=== PATIENT | female | born 1955 | race Caucasian/White ===

== ENCOUNTER 2018-05-25 06:20 | Observation (INO) | payer MEDICARE ==
[2018-05-22 13:44] LABS: Urine Appearance CLEAR; Urine Bilirubin NEGATIVE (NEG); Urine Blood NEGATIVE (NEG); Urine Color YELLOW; Urine Glucose NEGATIVE (NEG); Urine Protein NEGATIVE (NEG); Urine Specific Gravity 1.015 (1.005-1.030); Urine Urobilinogen 0.2 mg/dL (0.2-1.0); Urine pH 5.5 (5.0-7.0)
[2018-05-22 13:49] LABS: Absolute Lymphocytes (CBC) 2.1 K/uL (0.7-4.9); Absolute Neutrophil 4.8 K/uL (1.8-8.0); Basophils % 1.1 % (0-1.3); Eosinophils % 4.3 % (0-4.4); Hematocrit 34.3 % (36.0-45.0); Lymphocytes % 24.9 % (15.3-44.8); MCH 29.9 pg (27.0-35.0); MPV 9.8 fL (7.6-11.3); Monocytes % 12.3 % (3.3-12.3); RBC Red Blood Cell Count 3.89 M/uL (3.86-4.86)
[2018-05-22 14:11] LABS: Urine Microscopic Reflex ORDER UMIC
[2018-05-22 14:12] LABS: Urine Bacteria >50 /HPF (<20); Urine RBC <5 /HPF (NONE SEEN)
[2018-05-22 14:13] LABS: Urine Culture Reflex Order REFLEXED
[2018-05-25] MEDS ORDERED: SCOPOLAMINE HYDROBROMIDE PATCH TD ONE (06:41)
[2018-05-25] MEDS ORDERED: NA CHLORIDE 0.9% 1,000 ML ONE ×3 (06:41→10:36)
[2018-05-25 06:47] LABS: Specific Gravity 1.015 (1.005-1.030)
[2018-05-25] MEDS ORDERED: PROPOFOL 200 MG/20 ML VIAL IV ONE (06:58)
[2018-05-25] MEDS ORDERED: ROCURONIUM 50 MG/5 ML VIAL IV ONE ×2 (06:59→08:46)
[2018-05-25] MEDS ORDERED: GLYCOPYRROLATE 0.2 MG/ML SYR ONE ×2 (06:59→07:00)
[2018-05-25] MEDS ORDERED: DEXAMETHASONE 10 MG/ML VIAL ONE (07:00)
[2018-05-25] MEDS ORDERED: LIDOCAINE 2% MPF 5 ML VIAL ONE (07:00)
[2018-05-25] MEDS ORDERED: FENTANYL CITR 250 MCG/5 ML ONE (07:01)
[2018-05-25] MEDS ORDERED: MIDAZOLAM HCL 2 MG/2 ML INJ ONE ×2 (07:01→10:39)
[2018-05-25] MEDS ORDERED: NEOSTIGMINE 1 MG/ML -5 ML SYRINGE ONE (07:01)
[2018-05-25] MEDS ORDERED: ONDANSETRON HCL 40 MG/20 ML VIAL ONE ×2 (07:01→10:39)
[2018-05-25] MEDS: CEFAZOLIN/SWI 2gm 2 GM/20 ML SYR IV SCH ×2 (08:01→08:36)
[2018-05-25] MEDS: NA CHLORIDE 0.9% 1,000 ML ONE ×2 (08:10→08:36)
[2018-05-25] MEDS ORDERED: EPHEDRINE SULF 50 MG/10 ML SYR ONE (08:26)
[2018-05-25] MEDS ORDERED: CEFAZOLIN SODIUM 1 GM/VIAL ONE (10:43)
[2018-05-25] MEDS: HYDRALAZINE HCL 20 MG/ML VIAL ONE ×3 (11:06→11:20)
[2018-05-25] MEDS ORDERED: INSULIN -REGULAR HUMAN 50 UNIT/0.5 ML ML ONE ×2 (13:06→15:13)
[2018-05-25] MEDS ORDERED: FUROSEMIDE 20 MG/ 2ML VIAL ONE (13:13)
--- NOTE | 2018-05-25 14:02 | RAD REPORT ---
EXAM DESCRIPTION: RAD - Chest Single View - 05/25/2018 1:21 pm CLINICAL HISTORY: Shortness of breath, pulmonary edema COMPARISON: August 2015 TECHNIQUE: AP portable chest image was obtained 1306 hours . FINDINGS: No focal consolidation identifiable. Lung volumes are low. Heart size and pulmonary vascul ature within normal limits. Mild alveolar opacities are present in the medial left lung base and in t he upper central and lower central right lung field. Trachea is midline. No measurable pleural effusi on and no pneumothorax. No acute bony abnormality seen. No acute aortic findings suspected. IMPRESSION: Central alveolar edema or infiltrate pattern in the right lung field and in the medial l eft lung base. No cardiomegaly or vascular engorgement.
[2018-05-25] MEDS: MEPERIDINE HCL 25 MG/0.5 ML ONE ×2 (14:41→14:49)
[2018-05-25] MEDS ORDERED: MEPERIDINE HCL 50 MG/ML AMP ONE (15:25)
[2018-05-25] MEDS ORDERED: HYDROCODONE/APAP 7.5/325 MG TAB PO PRN (15:35)
[2018-05-25] MEDS ORDERED: PROMETHAZINE 25 MG/ML VIAL IV PRN (15:36)
[2018-05-25] MEDS ORDERED: Ringers Lactate 1,000 ML IV SCH (16:00)
[2018-05-25] MEDS: INSULIN -REGULAR HUMAN 50 UNIT/0.5 ML ML SQ SCH ×7 (17:00→23:18)
[2018-05-25] MEDS ORDERED: GLUCAGON 1 MG/VIAL IM PRN (17:32)
[2018-05-25] MEDS ORDERED: D50W 25 GM/50 ML SYRINGE IV PRN (17:32)
[2018-05-25] MEDS ORDERED: FUROSEMIDE 40 MG/4 ML VIAL IV ONE (18:15)
[2018-05-25 18:57] LABS: Magnesium 1.7 mg/dL (1.8-2.4); Potassium 4.6 mmol/L (3.5-5.1)
--- NOTE | 2018-05-25 19:55 | OP ---
Date of Procedure: 05/25/2018 Surgeon: Iwona Quevedo MD Principal Product Manager: Della Kinsey. Preoperative Diagnosis: Recurrent postmenopausal bleeding. Postoperative Diagnosis: Recurrent postmenopausal bleeding. Procedures Performed: Total laparoscopic hysterectomy, bilateral salpingo-oophorectomy, pelvic washi ngs, and lysis of sigmoid and omental adhesions, which took more than 50% of the case, cystoscopy. Anesthesia: General endotracheal. The patient had to be intubated with a GlideScope. Estimated Blood Loss: Minimal. Specimens: Uterus, tubes, and ovaries, and pelvic washings. Complications: None. Drains: None. Condition: The patient is stable. Findings: There were dense omental adhesions from the section in the lower abdominal cavity from the center all the way to the left and then the left lower quadrant at the pelvic brim, and adh esions from the omentum to the bowel as well. There were tubal adhesions to the bowel as well. The removal of bowel and getting the case started took 50% of the time of the procedure. Uterus, tubes, and ovaries appeared to be unremarkable and the vaginal cuff was closed with the help of 2-0 V-Loc an d the peritoneum was closed on top of this with the help of 3-0 Vicryl in a continuous running fashio n. Indications For Procedure: The patient is a 62-year-old with postmenopausal bleeding who presented l ast year. She was evaluated. Her endometrial stripe was a 8.5 mm, so endometrial hysteroscopy was p erformed with endometrial curettings, which showed inactive endometrium; however, the endometrium sona eared to be inadequate for sampling. The patient over the next 6 months continued to be observed. S he continued to have recurrent episodes of postmenopausal bleeding over that period of time, so we di scussed options of re-sampling, observation with followup, and hysterectomy. She was explained that there could be a small chance of an endometrial cancer or other pathology that is not obvious or amen able to diagnosis and that would be the reason to proceed with a hysterectomy. Given the recurrent e pisodes of bleeding, she was concerned and wanted to proceed with hysterectomy after having thought a bout this for few months, and medical clearance was obtained from her glass cleaning machine tender and her primary ca re physician. Then we proceeded with the procedure. Procedure In Detail: After she was brought here, she was re-consented, taken back to the OR. Two gr ams of Ancef were given. Placed in a dorsal lithotomy position using the Rick stirrups. The IVs we re difficult to get. However, 1 on each arm were obtained. SCDs were left on the legs and there wer e started before the start of the case. After patient was tucked with the arms on the side boards, s he did well without any problems. Uterus was about 6 week size, small. No adnexal mass palpable. Uterus appeared to be mobile. Abdomen, vulva, vagina, and peritoneum were prepped and draped in a sterile fashion. Knowles was place d to drain the bladder and attached to cysto tubing for retrograde filling. A medium VCare manipulat or was introduced into the uterus in the usual fashion and this area was draped. A 1 cm infraumbilic al incision was made with a scalpel using the open laparoscopy technique. Fascia was incised, tagged , and the Terrell introduced. Site of entry was checked. There were no adhesions right at this point , however, superiorly and laterally, the upper abdominal cavity on the right side and the lower abdom en in the midline and to the left side, there were dense omental adhesions, could not see anything to even place another port, so a right lower quadrant port was placed 5 mm without any problems under d irect vision. Then I went on to take down the adhesions systematically by making windows and with pu sh-spread technique and then taking down with the help of the LigaSure. After all the omental adhesi ons were systematically taken down, there were some bladder adhesions which were also taken down. Th ere was an omental adhesion to the left sigmoid colon and this was taken down. There were adhesions of the sigmoid colon to the left pelvic brim besides the natural attachment. These were also taken d own because the colon was masking the left adnexa and it was difficult to even evaluate the pelvic ca vity. So, once all these adhesions were taken down, there were adhesions of the left ovary to the si gmoid. This was also taken down. Then once all adhesions were cleared up, we then proceeded with th e hysterectomy. The 5 mm left lower quadrant and 10 mm suprapubic ports were placed under direct vis ion. After thorough evaluation, I could not see the ureters. However, the cap was obvious. No darya omical distortion was noted anteriorly. There was a scar in the bladder aspect on the anterior vagin al wall on the left side. Once this was all visualized, a 5 mm LigaSure was used to take down the ut ero-ovarian ligament, mesosalpinx, round ligament, the both leaves of the broad ligament a nd raising the bladder flap anteriorly all the way to the opposite side. Once I got to the space at the VCare cup, this was dissected with the help of a monopolar to open the vesicovaginal space and th en the bladder was retracted inferiorly. More adhesions on the left side than on the right, and thes e were taken down carefully with push-spread technique, making windows, and taken down with the help of the LigaSure. Once this was done, the bladder was pushed inferiorly. Then, the vessels were skel etonized. Posterior peritoneum taken down to the left uterosacral. On the opposite side, similar di ssection was performed on the utero-ovarian round, mesosalpinx tube, broad ligament anterior and post erior leaves. Anterior was connected to the bladder flap and dissection was performed to skeletonize the vessels. Posteriorly, once the peritoneum was taken down and the broad ligament was taken down, the vessels were completely skeletonized. Then anteriorly the bladder flap was pushed down in the v esicovaginal avascular space adequately in a circumferential fashion, so the VCare cup was well visua lized and the windows were made in the medial aspects of both vessels first on the right side than on the left. Bipolar basket tip was used to cauterize and LigaSure was used to cauterize and cut. The cardinal ligaments were also taken down on both sides then circumferential colpotomy with a monopola r hook blade in a circumferential fashion taking all the specimen detaching it from the vagina. The specimen was pulled out through the vagina. There was excellent hemostasis. The tubes and ovaries w ere then removed with the help of the LigaSure starting on the left side, taking down the tube then t he ovary separately, and the tube was removed through the suprapubic trocar. Same thing with the opp osite side, on the right side the tube was removed through the suprapubic trocar. There were tubal a dhesions to the omentum as well as the lateral wall, so these were all taken down, taking the segment s of the tube out. There was a solid mass that appeared to be like calcium formation in the cut dist al part of the fallopian tube. Once this specimen was removed as well, then the tube and ovary were removed on this side. There was excellent hemostasis. Thorough irrigation and suction were performe d. The vaginal cuff was closed with the help of 2-0 V-Loc starting on the right side coming to the l eft, and ending the suture by going back 1 stitch, so that it does not slide out. A 3-0 Vicryl was used to close the peritoneum on top of this, so the V-Loc is not exposed. Thorough irrigation and suction were performed. Pictures were taken. The bowel epiploicae that were tacked w ith the help of 2-0 PDS using the Javier-Andreina in the left upper quadrant were released, and this was not bleeding and was completely hemostatic. Then, the trocars were removed under direct vision. The gas was desufflated. Fascia at the umbilicus closed with 0 Vicryl in a egvxns-[id number]-vdvtv fashion. All the skin incisions closed with the help of 4-0 Monocryl interrupted. Cystoscopy was performed with a 17-Hebrew sheath, 30-degree lens and normal saline. After removing the Knowles, there was excel lent flow of urine from both ureteric orifices. No evidence of any thinner stream or delay. There w as squamous metaplasia in the trigonal area as well as near the left ureter, but this did not appear to be abnormal. There were patches of squamous metaplasia as well anterior sides, and the trigone co samra towards the right ureter. The bladder was drained. The vagina was cleaned up. Instrument, needle, and sponge counts were done and were correct at the end of the case. The patient tolerated the procedure well. She will follow up with me in 1 week. She has been given instructions to continue her antibiotics, and she was give n a dose of Ancef at 3 hours in the OR. Her saturations had dropped for a little bit when she was in itially placed in Trendelenburg, however they were very stable throughout the entire case. Her blood pressure was stable and all her vital signs, so she was taken to Recovery, still intubated, and once she is extubated, we will figure out the plan on whether to observe her or discharge her home, most likely discharge her home if she is stable. Instrument, needle, and sponge counts were correct. KUMAR/JEREMÍAS Voice ID: [id number] Report ID: [id number]
[2018-05-25 20:19] VITALS: BMI 39.9
[2018-05-25] MEDS ORDERED: MAGNESIUM SULFATE 1 gm IVPB 1 GM/100 ML BAG IV ONE (21:00)
[2018-05-25] MEDS: MEPERIDINE HCL 50 MG/ML AMP IV PRN (21:39)
[2018-05-25] MEDS ORDERED: NA CHLORIDE 0.9% 250 ML ONE (21:40)
[2018-05-26] MEDS: MEPERIDINE HCL 50 MG/ML AMP IV PRN (04:33)
[2018-05-26 05:20] LABS: Magnesium 2.2 mg/dL (1.8-2.4); Potassium 3.6 mmol/L (3.5-5.1)
[2018-05-26] MEDS ORDERED: KCL 20 MEQ/100 mL IVPB 20 MEQ/100 ML BAG IV SCH (06:00)
[2018-05-26] MEDS ORDERED: NA CHLORIDE 0.9% 250 ML ONE (06:02)
--- NOTE | 2018-05-26 07:53 | CON ---
Date of Consultation: 05/25/2018 Chief Complaint: Shortness of breath. History Of Present Illness: A 62-year-old female patient who had elective surgery done today by Dr. Quevedo in the form of hysterectomy. The patient did obtain Cardiology clearance from her long wall shear operator who is out of town, and she informs me that she had echocardiogram and a stress test done by her long wall shear operator, and then long wall shear operator gave her cardiac clearance. The patient had surgery done today. After surgery during recovery process, she actually had problem with her pulmonary edema, and she was not able to be extubated immediately, but subsequently they were able to extubate her, and she was on BiPAP. Chest x-ray had revealed evidence of pulmonary edema, and 40 mg Lasix IV was given x1 dose, and I was contacted by Dr. Quevedo. By that time, the patient's condition was improving, and after I discussed with her, I did request second dose of Lasix 40 mg IV to be given, and a stat blood work was ordered. I did see the patient this evening, and she was in her room on nasal cannula oxygen at least for the last 3 to 4 hours or so and was not in any respiratory distress. The patient reported feeling better compared to earlier. Allergies: SHE IS ALLERGIC TO LEVOFLOXACIN CAUSING TINGLING, NUMBNESS, DIZZINESS; TRIAMTERENE CAUSING RASH; AND HEPARIN CAUSING SWELLING AND SWEATING. Medications: According to outpatient office chart, she is on famotidine 40 mg at bedtime, gemfibrozil 600 mg daily, glimepiride 1 mg 2 times a day, levothyroxine 125 mcg p.o. daily, lisinopril 20/HCTZ 12.5 one tablet 2 times a day, lovastatin 40 mg p.o. daily, magnesium 250 mg 3 times a day, metformin 500 mg 2 times a day, metoprolol 100 mg 2 times a day, vitamin B12 1000 mcg daily, vitamin D3 1000 units p.o. daily. Review of Systems: Respiratory: As mentioned above. Cardiovascular: As mentioned above. All other systems reviewed and negative. Past Medical History: Significant for hypertension, mixed hyperlipidemia, type 2 diabetes mellitus, hypomagnesemia, gastroesophageal reflux disease, hypothyroidism, diabetic neuropathy, and chronic diastolic congestive heart failure. Past Surgical History: Significant for cholecystectomy, , removal of benign breast tumor and surgery for ankle fracture. Family History: Significant for COPD, hypertension, diabetes, stroke and myocardial infarction. Social History: Prior history of smoking but not at present time, quit long time ago. Negative for alcohol use. Physical Examination: Vital Signs: Last temperature 96.8, pulse 80, respiratory rate 18, blood pressure 119/54, oxygen saturation 93%. Height 5 feet 7 inches, weight 255 pounds. General: Awake, alert, oriented, not in distress. HEENT: Head atraumatic, normocephalic. Conjunctivae nonerythematous. Sclerae white. Mouth, no thrush or edema noted. Ears/Nose, no mass, lesion, discharge noted. Neck: Supple. No JVD, lymph nodes, bruit, thyromegaly noted. Lungs: Bilateral scattered rales noted in lower half of both lung sweeney. The patient not using accessory muscles of respiration. Heart: Normal heart sounds, no murmur or gallop. Abdomen: Soft, bowel sounds normal. No guarding, rigidity, tenderness, mass, hepatosplenomegaly, distention, or bruit noted. Extremities: No leg edema. No calf tenderness. Skin: No rash, ulcer, cellulitis. Lymphatics: No lymph node enlargement in neck, supraclavicular, infraclavicular region. Neuro: No focal neurological deficit. Chest: Unremarkable. External Genitalia: Deferred. Rectal: Deferred. Diagnostic Studies: Her echocardiogram from 12/21/2017 done by her long wall shear operator had shown mild concentric left ventricular hypertrophy, ejection fraction 67%, mild mitral regurgitation, and trace tricuspid regurgitation. Labs from 05/22/2018 showed white count 8.3, hemoglobin 11.6, platelets 327. This afternoon, her sodium 139, potassium 4.6, chloride 107, bicarb 22, BUN 31, creatinine 1.30, glucose 282, magnesium 1.7. Chest x-ray shows evidence of pulmonary edema. Impression: 1. Acute pulmonary edema. 2. Congestive heart failure, chronic, diastolic, with acute exacerbation. 3. Hypertension. 4. Type 2 diabetes mellitus. 5. Mixed hyperlipidemia. 6. Hypothyroidism. 7. Diabetic neuropathy. 8. Hypomagnesemia. Plan: We will go ahead and continue to monitor intake/output on this patient. She is currently on IV fluid. I have taken the liberty to discontinue this IV fluid, and so far she has received Lasix 40 mg IV x2 doses, and we will not give any more Lasix tonight. Monitor intake, output, vital signs. Repeat blood work tomorrow morning. Replace electrolyte per protocol, and I will see her tomorrow morning for followup. The patient still has evidence of pulmonary edema on physical exam as well. She is medically stable at this point, not in any respiratory distress, and we will continue to diurese her tomorrow with monitoring of electrolytes. I have requested a copy of her stress test results and echo to be obtained from her long wall shear operator for our review. Details and plan of treatment discussed with her and Dr. Quevedo. SCDs in place for DVT prophylaxis. The patient is appropriate for inpatient and is expected to spend 2 midnights in hospital. Thank you very much for allowing me to participate in her care, and I will see her tomorrow morning for followup. JENNY/JEREMÍAS Voice ID: [id number] Report ID: [id number] AVELINO
[2018-05-26] MEDS: INSULIN -REGULAR HUMAN 50 UNIT/0.5 ML ML SQ SCH ×4 (08:59→21:04)
[2018-05-26] MEDS: FUROSEMIDE 40 MG/4 ML VIAL IV SCH (09:02)
[2018-05-26] MEDS: METOPROLOL TAR 50 MG TAB PO SCH ×2 (12:18→21:03)
[2018-05-26] MEDS: HYDROCODONE/APAP 7.5/325 MG TAB PO PRN ×2 (12:19→21:05)
--- NOTE | 2018-05-26 18:05 | PN ---
Date of Progress Note: 05/26/2018 Subjective: The patient was seen this morning for followup. No new complaints or problems reported by patient, lying in bed, not in any distress. Denied any shortness of breath or chest pain this mor alexander. Objective: Vital Signs: Reviewed. HEENT: Examination unremarkable. Lungs: Clear to auscultation except very minimum basal rales, significantly better than yesterday. Heart: Sounds normal. Abdomen: Soft. Bowel sounds normal. No guarding, rigidity, tenderness, or distention. Extremities: No leg edema. Laboratory Data: Sodium 141, potassium 3.6, chloride 105, bicarb 26, BUN 31, creatinine 1.20, glucos e 148, magnesium 2.2. Impression: 1.Pulmonary edema, improved. 2.Congestive heart failure, diastolic, acute. 3.Hypertension. 4.Diabetes mellitus. Plan: The patient's condition is significantly better today than yesterday. Lasix 40 mg IV x1 dose was ordered this morning. This will be her third dose of IV Lasix and she is diuresing very well. C linically improving well. Possible discharge either later today or tomorrow depending on her conditi on. Upon discharge, the patient will continue her all previously prescribed home medications. From my point of view, any additional medication or instruction per her attending, Dr. Quevedo. JENNY/MODL Voice ID: [id number] Report ID: [id number]
[2018-05-27 07:01] LABS: Potassium 3.8 mmol/L (3.5-5.1)
[2018-05-27] MEDS: INSULIN -REGULAR HUMAN 50 UNIT/0.5 ML ML SQ SCH ×2 (08:21→11:46)
[2018-05-27] MEDS: METOPROLOL TAR 50 MG TAB PO SCH (08:22)
[2018-05-27] MEDS: FUROSEMIDE 40 MG/4 ML VIAL IV SCH (08:24)
[2018-05-27] MEDS ORDERED: POTASSIUM CL SA 10 MEQ TAB PO ONE (09:00)
[2018-05-27 09:42] VITALS: O2SAT 100
--- NOTE | 2018-05-27 14:57 | PN ---
Date of Progress Note: 05/27/2018 Subjective: The patient was seen this morning for followup, no new complaints or problems reported b y patient. She was sitting in the chair and feeling fine. No shortness of breath. No complaints re ported this morning. Her was present with her at bedside. She is ambulating well without an y difficulties and maintaining adequate oxygen saturation without using any oxygen. Objective: Vital Signs: Reviewed. HEENT: Unremarkable. Lungs: Clear to auscultation. No rhonchi. No rales. Heart: Sounds normal. Abdomen: Soft. Bowel sounds normal. No guarding, rigidity, tenderness, or distention. Extremities: No leg edema. Laboratory Data: This morning sodium 141, potassium 3.8, chloride 105, bicarb 27, BUN 27, creatinine 1, glucose 171. Impression: 1.Congestive heart failure, acute, diastolic. 2.Pulmonary edema, resolved. 3.Hypertension. 4.Diabetes mellitus. Plan: The patient is medically stable for discharge. She does not need any more diuretic therapy wi zenaida Beyer and I did call her attending physician, Dr. Quevedo, details were discussed. From her poin t of view, the patient is stable for discharge and medically she is stable for discharge. So after t alking to her, I have written discharge order for patient to go home. The patient to continue all he r home medication as I was prescribing it to her prior to this admission. Dr. Quevedo has provided her with prescription as well as appropriate postop instructions. The patient to follow up with Dr. Quevedo per her instructions. JENNY/MODL Voice ID: [id number] Report ID: [id number]
[2018-05-27 17:05] VITALS: BP 142/65; TEMP 97.5
== END 2018-05-27 13:30 | disposition home or self-care (01) ==
LOC: OR 06:20 → 2ND 15:20 → INTOOBSV 21:58 → OBSVTOIN 21:58
PROVIDERS: ADMIT Obstetrics & Gynecology; ATTEND Obstetrics & Gynecology
PROC: 0UT24ZZ Resection of Bilateral Ovaries, Percutaneous Endoscopic Approach (ICD-10-PCS; 2018-05-25)
PROC: 0UT74ZZ Resection of Bilateral Fallopian Tubes, Percutaneous Endoscopic Approach (ICD-10-PCS; 2018-05-25)
PROC: 0DNU4ZZ Release Omentum, Percutaneous Endoscopic Approach (ICD-10-PCS; 2018-05-25)
PROC: 0UT94ZZ Resection of Uterus, Percutaneous Endoscopic Approach (ICD-10-PCS; principal; 2018-05-25 07:30)
DX: N95.0 Postmenopausal bleeding (principal); K66.0 Peritoneal adhesions (postprocedural) (postinfection); I11.0 Hypertensive heart disease with heart failure; I50.33 Acute on chronic diastolic (congestive) heart failure; E78.2 Mixed hyperlipidemia; E03.9 Hypothyroidism, unspecified; E11.40 Type 2 diabetes mellitus with diabetic neuropathy, unspecified; E83.42 Hypomagnesemia
CPT/HCPCS: 36415 ×3; 49329; 58571; 71045; 80048 ×3; 81025; 82962 ×14; 83735 ×3; 85025; 86850; 86900; 86901; 87077; 87086; 87088; 87186; 88108; 88305; 88307; 94002; 94660 ×3; 94760; J0360; J0690 ×2; J1100; J1940; J2175 ×4; J2250; J2405 ×2; J2710; J3475; J7030 ×4; 81003; 81015; G0378; G0379

== ENCOUNTER 2022-02-12 10:09 | Emergency (ER) | payer OTHER ==
[2022-02-12] MEDS ORDERED: NA CHLORIDE 0.9% 1,000 ML ONE (11:12)
[2022-02-12 11:30] LABS: Hematocrit 40.5 % (36.0-45.0); Lymphocytes % 21.1 % (15.3-44.8); MCV 87.2 fL (80-100); MPV 8.8 fL (7.6-11.3); RBC Red Blood Cell Count 4.65 M/uL (3.86-4.86)
[2022-02-12 11:33] LABS: Urine Blood Negative (Negative); Urine Glucose 3+ (Negative); Urine Protein Negative (Negative); Urine Specific Gravity 1.015 (1.005-1.030); Urine pH 5.5 (5.0-7.0)
[2022-02-12] MEDS ORDERED: AZITHROMYCIN 250 MG TAB ONE (11:33)
[2022-02-12 11:48] LABS: Bilirubin Total 0.4 mg/dL (0.2-1.0); Potassium 3.8 mmol/L (3.5-5.1); Protein, Total 7.6 g/dL (6.4-8.2); Troponin High Sensitivity 8.7 pg/mL (<58.9)
--- NOTE | 2022-02-12 11:49 | RAD REPORT ---
EXAM DESCRIPTION: RAD - Chest Pa And Lat (2 Views) - 02/12/2022 11:38 am CLINICAL HISTORY: Cough COMPARISON: Portable chest 05/25/2018, lateral chest 03/02/20152009 TECHNIQUE: Frontal and lateral views of the chest were obtained. FINDINGS: The lungs are clear of focal mass, consolidation or failure findings. No hilar mass or lym phadenopathy. Mildly prominent interstitial pattern is believed be baseline. Trachea is midline. Heart size is normal and central vasculature is within normal limits. No pleur al effusion or pneumothorax seen. No acute bony finding noted. No aortic abnormality. IMPRESSION: No acute cardiopulmonary process.
--- NOTE | 2022-02-12 12:32 | EDPHYS ---
Physician Documentation [facility] Name: Kaylan Enamorado Age: 66 yrs Sex: Female : 1955 Arrival Date: 02/12/2022 Time: 10:16 Bed 14 Private MD: Melanie Russell C ED Physician Nitin Esparza HPI: 02/12 11:49 This 66 yrs old Female presents to ER via Ambulatory with complaints of Flu jorge a Symptoms. 11:49 fever, cough and congestion. jorge a 11:50 The patient or guardian reports cough, flu symptoms, arthralgias, low-grade fever, jorge a myalgias. Onset: The symptoms/episode began/occurred this morning, today. Severity of symptoms: At their worst the symptoms were mild, in the emergency department the symptoms are unchanged. Modifying factors: The symptoms are alleviated by nothing, the symptoms are aggravated by exertion. The patient reports fever, that was measured at 97 degrees Fahrenheit. Onset: The symptoms/episode began/occurred 1 day(s) ago. Modifying factors: The patient has had contact with sick spouse. Associated signs and symptoms: Pertinent positives: rhinorrhea, sore throat. Severity of symptoms: At their worst the symptoms were mild in the emergency department the symptoms are unchanged. Historical: - Allergies: 10:35 Heparin; iw 10:35 Maxzide; iw - PMHx: 10:33 CHF; Diabetes - NIDDM; Hypertension; neck pain; iw - Immunization history:: Client reports having NOT received the Covid vaccine. - Social history:: Smoking status: Patient denies any tobacco usage or history of. - Family history:: not pertinent. ROS: 11:50 Constitutional: Negative for fever, chills, and weight loss, Eyes: Negative for injury, jorge a pain, redness, and discharge, ENT: Negative for injury, pain, and discharge, Neck: Negative for injury, pain, and swelling, Cardiovascular: Negative for chest pain, palpitations, and edema, Abdomen/GI: Negative for abdominal pain, nausea, vomiting, diarrhea, and constipation, Back: Negative for injury and pain, : Negative for injury, bleeding, discharge, and swelling, MS/Extremity: Negative for injury and deformity, Skin: Negative for injury, rash, and discoloration, Neuro: Negative for headache, weakness, numbness, tingling, and seizure, Psych: Negative for depression, anxiety, suicide ideation, homicidal ideation, and hallucinations, Allergy/Immunology: Negative for hives, rash, and allergies, Endocrine: Negative for neck swelling, polydipsia, polyuria, polyphagia, and marked weight changes, Hematologic/Lymphatic: Negative for swollen nodes, abnormal bleeding, and unusual bruising. 11:50 Respiratory: Positive for cough, "sounds productive". Exam: 11:50 Constitutional: This is a well developed, well nourished patient who is awake, alert, jorge a and in no acute distress. Head/Face: Normocephalic, atraumatic. Eyes: Pupils equal round and reactive to light, extra-ocular motions intact. Lids and lashes normal. Conjunctiva and sclera are non-icteric and not injected. Cornea within normal limits. Periorbital areas with no swelling, redness, or edema. ENT: Nares patent. No nasal discharge, no septal abnormalities noted. Tympanic membranes are normal and external auditory canals are clear. Oropharynx with no redness, swelling, or masses, exudates, or evidence of obstruction, uvula midline. Mucous membranes moist. Neck: Trachea midline, no thyromegaly or masses palpated, and no cervical lymphadenopathy. Supple, full range of motion without nuchal rigidity, or vertebral point tenderness. No Meningismus. Chest/axilla: Normal chest wall appearance and motion. Nontender with no deformity. No lesions are appreciated. Cardiovascular: Regular rate and rhythm with a normal S1 and S2. No gallops, murmurs, or rubs. Normal PMI, no JVD. No pulse deficits. Respiratory: Lungs have equal breath sounds bilaterally, clear to auscultation and percussion. No rales, rhonchi or wheezes noted. No increased work of breathing, no retractions or nasal flaring. Abdomen/GI: Soft, non-tender, with normal bowel sounds. No distension or tympany. No guarding or rebound. No evidence of tenderness throughout. Back: No spinal tenderness. No costovertebral tenderness. Full range of motion. Female : Normal external genitalia. Skin: Warm, dry with normal turgor. Normal color with no rashes, no lesions, and no evidence of cellulitis. MS/ Extremity: Pulses equal, no cyanosis. Neurovascular intact. Full, normal range of motion. Neuro: Awake and alert, GCS 15, oriented to person, place, time, and situation. Cranial nerves II-XII grossly intact. Motor strength 5/5 in all extremities. Sensory grossly intact. Cerebellar exam normal. Normal gait. Psych: Awake, alert, with orientation to person, place and time. Behavior, mood, and affect are within normal limits. 11:50 ECG was reviewed by the Attending Physician. 11:50 Musculoskeletal/extremity: ROM: no acute changes, Circulation is intact in all extremities. Sensation intact. Compartment Syndrome exam of affected extremity: is normal. DVT Exam: No signs of deep vein thrombosis. no pain, no swelling, no tenderness, negative Homans' sign noted on exam, no appreciated bluish discoloration, no erythema, no increased warmth. Vital Signs: 10:31 BP 118 / 60; Pulse 66; Resp 18; Temp 98.9; Pulse Ox 97% on R/A; Weight 102.06 kg; iw 14:50 BP 112 / 60; Pulse 65; Resp 15; Pulse Ox 97% ; jl7 MDM: 10:44 Patient medically screened. jorge a 11:55 Differential diagnosis: viral Infection, bacterial infection, URI, bronchitis, jorge a pneumonia. Differential Diagnosis flu, Bronchitis Influenza Upper Respiratory Infection Sinusitis Pharyngitis Otitis Media Viral Syndrome Pneumonia. Data reviewed: vital signs, nurses notes, lab test result(s), EKG, radiologic studies, plain films. 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 Test interpretation: by ED physician or midlevel provider: ECG, plain radiologic studies. Counseling: I had a detailed discussion with the patient and/or guardian regarding: the historical points, exam findings, and any diagnostic results supporting the discharge/admit diagnosis, lab results, radiology results, the need for outpatient follow up, for definitive care, 02/12 10:46 Order name: CBC with Diff jorge a 02/12 10:46 Order name: Comprehensive Metabolic Panel; Complete Time: 12:18 [facility] 02/12 10:46 Order name: Troponin High Sensitivity; Complete Time: 12:18 [facility] 02/12 10:46 Order name: Flu; Complete Time: 12:18 [facility] 02/12 10:46 Order name: SARS-COV-2 RT PCR (Document "Date of Onset" if Symptomatic); Complete Time: [facility] 12:18 02/12 11:34 Order name: Urine Dipstick-Ancillary; Complete Time: 12:18 [facility] 02/12 10:46 Order name: Chest Pa And Lat (2 Views) XRAY; Complete Time: 12:18 [facility] 02/12 10:46 Order name: EKG; Complete Time: 10:47 [facility] 02/12 11:44 Order name: Manual Differential [facility] 02/12 10:46 Order name: Urine Dipstick-Ancillary (obtain specimen); Complete Time: 11:46 [facility] 02/12 10:46 Order name: EKG - Nurse/Tech; Complete Time: 11:00 [facility] 02/12 12:30 Order name: Misc. Order: Bebtelovimab protocol; Complete Time: 14:49 [facility] EC:50 Rate is 62 beats/min. Rhythm is regular. QRS [place] is Normal. [place] interval is normal. QRS jorge a interval is normal. QT interval is normal. No Q waves. T waves are Normal. No ST changes noted. Clinical impression: NSR w/ Non-specific ST/T Changes and No evidence of ischemia. Interpreted by me. Reviewed by me. Administered Medications: 11:30 Drug: NS 0.9% 1000 ml Route: IV; Rate: 1 bolus; Site: left antecubital; jl7 12:30 Follow up: Response: No adverse reaction; IV Status: Completed infusion; IV Intake: jl7 1000ml 11:30 Drug: Zithromax (azithromycin) 500 mg Route: PO; jl7 13:26 Follow up: Response: No adverse reaction jl7 13:25 Drug: bebtelovimab 175 mg Route: IV; Rate: calculated rate; Site: left antecubital; jl7 13:27 Follow up: IV Status: Completed infusion jl7 14:49 Follow up: Response: No adverse reaction jl7 13:26 Not Given (Patient Refused): Aspirin 162 mg PO once jl7 13:26 Drug: Pepcid (famotidine) 40 mg Route: PO; jl7 14:49 Follow up: Response: No adverse reaction jl7 Disposition Summary: 02/12/22 12:31 Discharge Ordered Location: Home jorge a Problem: new jorge a Symptoms: have improved jorge a Condition: Stable jorge a Diagnosis - Fever, unspecified jorge a - Acute upper respiratory infection, unspecified jorge a - Weakness jorge a - Type 2 diabetes mellitus with hyperglycemia jorge a - Unspecified kidney failure jorge a - Coronavirus infection, unspecified jorge a - SARS-associated coronavirus as the cause of diseases classified elsewhere jorge a Followup: jorge a - With: - When: 2 - 3 days - Reason: Recheck today's complaints, Continuance of care, Re-evaluation by your physician Discharge Instructions: - Discharge Summary Sheet jorge a - Fever, Adult jorge a - Upper Respiratory Infection, Adult jorge a - Weakness jorge a - Cool Mist Vaporizer jorge a - Hyperglycemia jorge a - Upper Respiratory Infection, Adult, Yafq-fc-Cgnm jorge a - Cough, Adult, Qgqe-ii-Hbns jorge a - Weakness, Ploa-th-Vyvu jorge a - Cough, Adult jorge a - Diabetes Mellitus and Nutrition, Adult jorge a - Acute Kidney Injury, Adult jorge a - Chronic Kidney Disease, Adult, Bgdx-ne-Gtzi jorge a - Aspirin and Your Heart jorge a - Fever, Adult, Mobu-ul-Xkuu jorge a - COVID-19 [facility] - COVID-19 Frequently Asked Questions [facility] - Things to Know about the COVID-19 Pandemic - [facility] - 10 Things You Can Do to Manage Your COVID-19 Symptoms at Home - [facility] - COVID-19: Quarantine vs. Isolation - [facility] - Prevent the Spread of COVID-19 if You Are Sick - [facility] Forms: - Medication Reconciliation Form [facility] - Thank You Letter [facility] - Antibiotic Education [facility] - Prescription Opioid Use [facility] Prescriptions: - Zithromax Z-Fahad 250 mg Oral Tablet - take 1 tablet by ORAL route as directed for 5 days Day 1 - take two (2) tablets [facility] one time. Day 2, 3, 4 , 5 take one (1) tablet once daily.; 6 tablet; Refills: 0, Product Selection Permitted - Pepcid 20 mg Oral Tablet - take 1 tablet by ORAL route every 12 hours for 30 days; 60 tablet; Refills: 0, [facility] Product Selection Permitted Signatures: Dispatcher [employer] Nitin Medina MD MD cha Williams, Irene, RN RN iw Leal, Jahala, RN RN jl7 Corrections: (The following items were deleted from the chart) 10:36 10:33 Allergies: hydrochlorothiazide; iw 10:36 10:33 Allergies: Triamterene-Hydrochlorothiazid; [facility]
--- NOTE | 2022-02-12 12:32 | ER ---
Nurse's Notes [facility] Name: Kaylan Enamorado Age: 66 yrs Sex: Female : 1955 Arrival Date: 02/12/2022 Time: 10:16 Bed 14 Private MD: Melanie Russell C Diagnosis: Fever, unspecified;Acute upper respiratory infection, unspecified;Weakness;Type 2 diabetes mellitus with hyperglycemia;Unspecified kidney failure;Coronavirus infection, unspecified;SARS-associated coronavirus as the cause of diseases classified elsewhere Presentation: 02/12 10:31 Chief complaint: Patient states: dizziness, cough, SOB, no fever , nausea, no vomiting iw X 3 days. Coronavirus screen: Client presents with at least one sign or symptom that may indicate coronavirus-19. Ebola Screen: Patient negative for fever greater than or equal to 101.5 degrees Fahrenheit, and additional compatible Ebola Virus Disease symptoms Patient denies exposure to infectious person. Patient denies travel to an Ebola-affected area in the 21 days before illness onset. No symptoms or risks identified at this time. Initial Sepsis Screen: Does the patient meet any 2 criteria? No. Patient's initial sepsis screen is negative. Does the patient have a suspected source of infection? No. Patient's initial sepsis screen is negative. Risk Assessment: Do you want to hurt yourself or someone else? Patient reports no desire to harm self or others. Onset of symptoms was February 09, 2022. 10:31 Method Of Arrival: Ambulatory iw 10:31 Acuity: JONAS 3 iw Historical: - Allergies: 10:35 Heparin; iw 10:35 Maxzide; iw - PMHx: 10:33 CHF; Diabetes - NIDDM; Hypertension; neck pain; iw - Immunization history:: Client reports having NOT received the Covid vaccine. - Social history:: Smoking status: Patient denies any tobacco usage or history of. - Family history:: not pertinent. Screenin:08 Abuse screen: Denies threats or abuse. Denies injuries from another. Nutritional jl7 screening: No deficits noted. Tuberculosis screening: No symptoms or risk factors identified. Fall Risk IV access (20 points). Total Clark Fall Scale indicates No Risk (0-24 pts). Assessment: 11:08 General: Appears in no apparent distress. uncomfortable, Behavior is calm, cooperative, jl7 appropriate for age. Pain: Denies pain. Neuro: Level of Consciousness is awake, alert, obeys commands, Oriented to person, place, time, situation. Cardiovascular: Patient's skin is warm and dry. Respiratory: Airway is patent Respiratory effort is even, unlabored, Respiratory pattern is regular, symmetrical. GI: Reports nausea, Patient currently denies diarrhea, vomiting. : No signs and/or symptoms were reported regarding the genitourinary system. Derm: Skin is pink, warm \\T\\ dry. 12:20 Reassessment: Dr. Esparza at bedside discussing results and POC. jl7 14:30 Reassessment: Patient appears in no apparent distress at this time. No changes from jl7 previously documented assessment. Patient and/or family updated on plan of care and expected duration. Pain level reassessed. Patient is alert, oriented x 3, equal unlabored respirations, skin warm/dry/pink. Vital Signs: 10:31 BP 118 / 60; Pulse 66; Resp 18; Temp 98.9; Pulse Ox 97% on R/A; Weight 102.06 kg; iw 14:50 BP 112 / 60; Pulse 65; Resp 15; Pulse Ox 97% ; jl7 ED Course: 10:16 Patient arrived in ED. mr 10:16 Melanie Russell MD is Private Physician. mr 10:33 Triage completed. iw 10:36 Arm band placed on. iw 10:44 Nitin Esparza MD is Attending Physician. jorge a 11:00 Bed in low position. Call light in reach. Side rails up X 1. Door closed. Noise mb7 minimized. Warm blanket given. 11:00 EKG done, by ED staff, reviewed by Nitin Esparza MD. mb7 11:02 Susanne Mendoza, RN is Primary Nurse. jl7 11:08 Pulse ox on. NIBP on. jl7 11:17 Initial lab(s) drawn, by id, sent to lab. Inserted saline lock: 20 gauge in left jl7 antecubital area, using aseptic technique. Blood collected. 11:26 SARS-COV-2 RT PCR (Document "Date of Onset" if Symptomatic) Sent. mb7 11:26 Flu Sent. mb7 11:39 Chest Pa And Lat (2 Views) XRAY In Process Unspecified. EDMS 12:31 Melanie Russell MD is Referral Physician. jorge a 14:50 No provider procedures requiring assistance completed. IV discontinued, intact, jl7 bleeding controlled, No redness/swelling at site. Pressure dressing applied. Administered Medications: 11:30 Drug: NS 0.9% 1000 ml Route: IV; Rate: 1 bolus; Site: left antecubital; jl7 12:30 Follow up: Response: No adverse reaction; IV Status: Completed infusion; IV Intake: jl7 1000ml 11:30 Drug: Zithromax (azithromycin) 500 mg Route: PO; jl7 13:26 Follow up: Response: No adverse reaction jl7 13:25 Drug: bebtelovimab 175 mg Route: IV; Rate: calculated rate; Site: left antecubital; jl7 13:27 Follow up: IV Status: Completed infusion jl7 14:49 Follow up: Response: No adverse reaction jl7 13:26 Not Given (Patient Refused): Aspirin 162 mg PO once jl7 13:26 Drug: Pepcid (famotidine) 40 mg Route: PO; jl7 14:49 Follow up: Response: No adverse reaction jl7 Medication: 14:50 VIS not applicable for this client. jl7 Intake: 12:30 IV: 1000ml; Total: 1000ml. jl7 Outcome: 12:31 Discharge ordered by . [facility] 14:50 Discharged to home ambulatory, with family. [facility] 14:50 Condition: stable 14:50 Discharge instructions given to patient, family, Instructed on discharge instructions, follow up and referral plans. medication usage, Demonstrated understanding of instructions, follow-up care, medications, Prescriptions given X 2. 14:50 Patient left the ED. jl7 Signatures: Dispatcher [employer] EDMD Nitin Esparza MD MD cha Rivera, Mary mr Williams, Irene, RN Susanne Malin RN RN jl7 Breneman, Mary 7 Corrections: (The following items were deleted from the chart) 10:36 10:33 Allergies: hydrochlorothiazide; [facility] 10:36 10:33 Allergies: Triamterene-Hydrochlorothiazid; [facility]
[2022-02-12 12:47] LABS: Blood Morphology Comment NOT SEEN (NOT SEEN); Platelet Estimate ADEQ
[2022-02-12] MEDS ORDERED: ASPIRIN 81 MG CHEWABLE TABLET ONE (12:59)
[2022-02-12] MEDS ORDERED: FAMOTIDINE 20 MG TAB ONE (12:59)
[2022-02-12] MEDS ORDERED: BEBTELOVIMAB 175 MG/2 ML VIAL IV ONE (12:59)
[2022-02-12 15:02] VITALS: TEMP 98.9; O2SAT 97
[2022-02-12 15:07] VITALS: BP 112/60
--- NOTE | 2022-02-14 14:43 | EKG ---
Test Date: 2022-02-12 Test Time: 10:58:13 Relays [place]: MB MEASUREMENT RESULTS: Intervals: Rate: 62 AL: 152 QRSD: 96 QT: 446 QTc: 452 [place]: P: 58 AL: 152 QRS: 39 T: 15 INTERPRETIVE STATEMENTS: Normal sinus rhythm Nonspecific ST abnormality Abnormal ECG Compared to ECG 01/06/2015 16:15:17 Possible ischemia no longer present ST (T wave) deviation still present Electronically Signed On 02-14-22 14:41:23 CDT by Audi Franco
== END 2022-02-12 14:50 | disposition home or self-care (01) ==
LOC: ER 10:09
DX: U07.1 COVID-19 (principal); E11.65 Type 2 diabetes mellitus with hyperglycemia; R53.1 Weakness; E11.22 Type 2 diabetes mellitus with diabetic chronic kidney disease; N18.9 Chronic kidney disease, unspecified; Z88.8 Allergy status to other drugs, medicaments and biological substances
CPT/HCPCS: 93005; 85025; 36415; 81003; 84484; 80053; 87804 ×2; 71046; 99284; U0003; J7030